=== PATIENT | female | born 1965 | race African-American/Black ===

== ENCOUNTER 2016-05-26 16:00 | Emergency (ER) | payer BC ==
[2016-05-26 13:46] LABS: BASOPHILS 0.2 %; BASOPHILS ABSOLUTE 0.02 10/3/uL (0.0-0.16); HEMATOCRIT 34.9 % (36.0-48.0); HEMOGLOBIN 11.9 g/dL (12.0-16.0); IMMATURE GRANULOCYTES 0.2 %; IMMATURE GRANULOCYTES ABSOLUTE 0.02 10/3/uL (0.0-0.11); LYMPHOCYTES 36.7 %; LYMPHOCYTES ABSOLUTE 3.53 10/3/uL (0.67-4.30); MEAN CORPUS HGB CONC 34.1 g/dL (32.0-36.0); MEAN CORPUSCULAR HEMOGLOB 29.3 pg (26.0-34.0); MEAN PLATELET VOLUME 9.4 fL (9.2-13.0); MONOCYTES 5.4 %; MONOCYTES ABSOLUTE 0.52 10/3/uL (0.21-1.20); NEUTROPHILS 56.5 %; NEUTROPHILS ABSOLUTE 5.43 10/3/uL (2.02-8.40); PLATELET COUNT 405 10/3/uL (150-400); RBC DISTRIBUTION WIDTH 12.9 % (12.0-16.0); RED CELL COUNT 4.06 10/6/uL (4.0-5.6); WHITE BLOOD CELLS 9.6 10/3/uL (4.5-10.5)
[2016-05-26 13:47] LABS: MANUAL DIFF NO %
[2016-05-26 13:53] LABS: INTERNATIONAL NORMAL RATI 1.1 UNITS (-); PROTIME (NOT ORD) 13.7 SEC (12.0-14.5)
[2016-05-26 13:54] LABS: PARTIAL THROMBO TIME 27.2 SEC (22.5-37.2)
[2016-05-26 14:01] LABS: A/G RATIO 0.7 (0.7-1.9); ALBUMIN 3.4 G/DL (3.5-5.0); CALCIUM, SERUM 8.8 MG/DL (8.5-10.4); CHLORIDE, SERUM 101 MMOL/L (96-112); CO2 (CARBON DIOXIDE) 23 MMOL/L (24-34); CREATININE 0.98 MG/DL (0.55-1.02); GFR AFRICAN AMERICAN 79 ML/MIN (>=60); GFR NON AFRICAN AMERICAN 68 ML/MIN (>=60); GLOBULIN 4.6 G/DL (2.5-4.1); POTASSIUM, SERUM 3.9 MMOL/L (3.5-5.3); SGOT(AST) 21 U/L (5-40); SGPT(ALT) 32 U/L (5-65); SODIUM, SERUM 137 MMOL/L (135-148); TOTAL BILIRUBIN 0.3 MG/DL (0-1.2)
[2016-05-26 14:02] LABS: ALKALINE PHOSPHATASE 122 U/L (45-117); BUN (BLOOD UREA NITROGEN) 19 MG/DL (6-23); GLUCOSE, SERUM 301 MG/DL (60-99)
[~2016-05-26 16:00] MED LIST: AMIT10 PO; AMITRIPTYLIN150 MG PO; ASAB PO; CALTRA600D PO; CIP5 PO; CRESTOR PO; CRESTOR10 PO; GLUCOPHAGE1000 MG PO; GLUCPH PO; HALF81 PO; HCTZ25B PO; LEVAMIR SC; LEVEMIR SC; MULTIVIT/MIN PO; NEXIUM20 M1 PO; NEXIUM40 PO; NORCO1 TAB PO; NOVOLOG SC; NOVOPEN SC; OMEGA 3 PO; OMEGA 3550 MG PO; OTC NASAL SPRAY NAS; PRIN10 PO; PRIN20 PO; TRILIPIX PO; TRILIPIX135 MG PO; TYLENOL SINUS PO; UNKNOWN BP MED PO; VASOTEC20 MG PO; VITD PO; ZICAM PO; ZOCOR10 PO; [UNRECOGNIZED DRUG - OTHER] PO; [UNRECOGNIZED DRUG - OTHER] PO; [UNRECOGNIZED DRUG - REMARK] SC
[2016-06-04] MEDS ORDERED: AMIT75 PO (16:33)
[2016-06-04] MEDS ORDERED: IRON TAB PO (16:34)
[2016-06-04] MEDS ORDERED: PROMETRIUM PO (16:36)
== END 2016-05-26 16:08 | disposition home or self-care (01) ==
LOC: ER 16:00
PROVIDERS: Emergency Medicine
DX: K62.5 Hemorrhage of anus and rectum (principal); I10 Essential (primary) hypertension; E11.9 Type 2 diabetes mellitus without complications; Z79.4 Long term (current) use of insulin; Z79.84 Long term (current) use of oral hypoglycemic drugs; Z79.82 Long term (current) use of aspirin; Z79.899 Other long term (current) drug therapy
CPT/HCPCS: 36415; 80053; 85025; 85610; 85730; 86850; 86900; 86901; 93005; 99283

== ENCOUNTER 2016-06-08 09:04 | Day surgery (SDC) | payer BC ==
[2016-06-04 12:51] LABS: HEMATOCRIT 34.3 % (36.0-48.0); HEMOGLOBIN 11.8 g/dL (12.0-16.0)
[2016-06-04 13:10] LABS: BUN (BLOOD UREA NITROGEN) 16 MG/DL (6-23); CALCIUM, SERUM 8.9 MG/DL (8.5-10.4); CHLORIDE, SERUM 100 MMOL/L (96-112); CO2 (CARBON DIOXIDE) 25 MMOL/L (24-34); CREATININE 0.77 MG/DL (0.55-1.02); GFR AFRICAN AMERICAN 106 ML/MIN (>=60); GFR NON AFRICAN AMERICAN 91 ML/MIN (>=60); GLUCOSE, SERUM 292 MG/DL (60-99); POTASSIUM, SERUM 4.3 MMOL/L (3.5-5.3); SODIUM, SERUM 136 MMOL/L (135-148)
[2016-06-06 14:54] LABS: ASCORBIC ACID (UR NOT ORDER) NEG (NEG); BILIRUBIN, URINE NEGATIVE (NEG); KETONE, URINE NEGATIVE (NEG); LEUKOCYTE ESTERASE(NOT OR NEG (NEG); WBC (NOT ORDERED) (RFLEX) 1 (0-5)
--- NOTE | ~2016-06-08 | OP ---
Record Of Operation [facility] [address] [place]. [address] NAME: JOSELINE ROMERO : 69 STATUS : [facility]#: [id number] AGE: 50 ADM/REG DATE : 06/08/16 MR#: [id number] REPORT SERV DATE: 06/09/16 DICTATED BY: DANIELLE ALBARADO DATE: 06/09/16 REPORT STATUS : Draft TRANSCRIBED BY: MODL DATE: 06/09/16 DATE OF PROCEDURE: 06/08/2016 TITLE OF OPERATION: Cystourethroscopy, left retrograde pyelogram, left flexible ureteroscopy. PREOPERATIVE DIAGNOSIS: Left hydronephrosis. POSTOPERATIVE DIAGNOSIS: Left hydronephrosis. INDICATIONS: Ms. Romero is a 50-year-old female with incidentally found left hydronephrosis. She is here for evaluation to rule out a sinister cause of her hydronephrosis. ANESTHESIA: General. COMPLICATIONS: None. IMPLANTS: None. SPECIMEN: Bladder wash for cytology. NARRATIVE: The patient was brought to the operating room, identified by her wristband. General anesthesia was induced. Ancef was given for preoperative antibiotics. She was placed in a dorsal lithotomy position, prepped and draped in sterile fashion. A cystoscope was placed into her urethra and into her bladder. Bladder was inspected. There was no tumors or abnormalities. The left ureteral orifice was identified and cannulated with a Sensor wire. A 5-Tamazight open-ended catheter was placed over the wire to the distal ureter. Retrograde pyelogram was shot under continuous fluoroscopy, which demonstrated no filling defects in the ureter or the renal pelvis. The ureter actually appeared normal in size as did the kidney. On the left side, we replaced a wire back up to the kidney and placed a flexible ureteroscope over the wire to the kidney. All portion of the kidney was systematically inspected with fluoroscopic guidance. The ureter was meticulously inspected and no abnormalities were found whatsoever. The ureteral orifice on the left side was seen to be effluxing clear urine as was on the right. I see no evidence of persistent hydronephrosis or sinister pathology. Therefore, the bladder was drained. The patient was awoken from anesthesia and transferred to the recovery room in stable condition. I sent her bladder washings for cytology. She will come back and see me on an as-needed basis. MARY ANN/SANDRA Danielle Albarado MD Record Of Operation [facility] [id number] [address] NAME: JOSELINE ROMERO : [birth year] STATUS : [facility] PAT#: [id number] AGE: 50 ADM/REG DATE : 06/08/16 MR#: [id number] REPORT SERV DATE: 06/09/16 DICTATED BY: DANIELLE ALBARADO DATE: 06/09/16 REPORT STATUS : Draft TRANSCRIBED BY: SANDRA DATE: 06/09/16 / [id number] CC: MD Callie Torres
[~2016-06-08 09:04] MED LIST changes: +AMIT75 PO; +IRON TAB PO; +PROMETRIUM PO
== END 2016-06-08 17:49 | disposition home or self-care (01) ==
LOC: SDC 09:04
PROVIDERS: Urology
PROC: BT1FYZZ Fluoroscopy of Left Kidney, Ureter and Bladder using Other Contrast (ICD-10-PCS; 2016-06-08)
PROC: 0TJ98ZZ Inspection of Ureter, Via Natural or Artificial Opening Endoscopic (ICD-10-PCS; principal; 2016-06-08 10:15)
DX: N13.30 Unspecified hydronephrosis (principal); I10 Essential (primary) hypertension; F17.210 Nicotine dependence, cigarettes, uncomplicated; E66.9 Obesity, unspecified; K21.9 Gastro-esophageal reflux disease without esophagitis; E78.00 Pure hypercholesterolemia, unspecified; Z68.42 Body mass index [BMI] 45.0-49.9, adult; Z79.82 Long term (current) use of aspirin; Z79.4 Long term (current) use of insulin; Z79.891 Long term (current) use of opiate analgesic; Z90.89 Acquired absence of other organs; Z90.710 Acquired absence of both cervix and uterus; Z90.49 Acquired absence of other specified parts of digestive tract; Z98.890 Other specified postprocedural states
CPT/HCPCS: 74420; 80048; 81001; 82962; 85014; 85018; 88112; 93005; A9270-GY; C1758; J0690; J2250; J2405; J2710; J3010; Q9967